=== PATIENT | male | born 1970 | race Two or more races ===

== ENCOUNTER 2024-06-02 08:48 | Emergency (ER) | payer BC ==
[2024-06-02] MEDS: Acetaminophen 325 MG Tab PO ONE (09:50)
[2024-06-02] MEDS: Lidocaine 4% 1 each Patch TOP ONE (09:51)
== END 2024-06-02 09:56 | disposition home or self-care (01) ==
LOC: MW.ED 08:48
DX: M79.662 Pain in left lower leg (principal); M54.32 Sciatica, left side; Z75.8 Other problems related to medical facilities and other health care; Z86.16 Personal history of COVID-19
CPT/HCPCS: 99283; A9270